=== PATIENT | male | born 1965 | race Caucasian/White ===

== ENCOUNTER 2023-09-24 03:30 | Emergency (ER) | payer OTHER ==
[~2023-09-24] VITALS: Ht 180.3 cm; Wt 113.9 kg
[2023-09-24 03:35] VITALS: BP_SYST 152; PULSE 81; RESP 20; TEMP 97.8; O2SAT 96
[2023-09-24] MEDS: KETOROLAC TROMETHAMINE 60 MG/2 ML VIAL IM ONE (03:52)
[2023-09-24] MEDS ORDERED: ALLO100T PO (03:57)
[2023-09-24] MEDS ORDERED: INDO-12 PO (03:57)
[2023-09-24] MEDS ORDERED: COLC0.6T67 PO (03:57)
[2023-09-24 04:06] VITALS: BP_SYST 152; PULSE 81; RESP 20; TEMP 97.8; O2SAT 96
== END 2023-09-24 04:07 | disposition home or self-care (01) ==
LOC: SED 03:30
DX: M10.9 Gout, unspecified (principal); E11.9 Type 2 diabetes mellitus without complications
CPT/HCPCS: 99283; 96372; J1885